=== PATIENT | female | born 1930 | race Two or more races ===

== ENCOUNTER 2016-08-05 09:19 | Emergency (ER) | payer OTHER, MEDICAID ==
[~2016-08-05] VITALS: Ht 160 cm; Wt 42.6 kg
[2016-08-05 10:07] LABS: Basophils # (auto) 0 uL; Basophils % (auto) 0.4 % (0.0-2.0); CONDITION Y; Eosinophils # (auto) 0.1 uL; Eosinophils % (auto) 0.9 % (0.0-7.0); Hematocrit 41.9 % (36.0-46.0); Hemoglobin 14.4 g/dL (12.2-16.2); Lymphocytes # (auto) 1.9 uL; Lymphocytes % (auto) 22.8 % (10.0-50.0); Mean Corpuscular Hemoglobin 32.6 pg (28.0-32.0); Mean Corpuscular Hgb Conc. 34.4 g/dL (32.0-36.0); Mean Corpuscular Volume 94.8 fL (80.0-100.0); Mean Platelet Volume 7.3 fL (7.4-10.4); Monocytes # (auto) 0.6 uL; Neutrophils # (auto) 5.6 uL; Neutrophils % (auto) 68.9 % (37.0-80.0); Platelet Count (auto) 289 10^3/uL (140-450); Red Cell Distribution Width 13.5 % (11.6-16.0); White Blood Cell 8.2 10^3/uL (4.4-10.8)
[2016-08-05 10:31] LABS: Alkaline Phosphatase 69 U/L (45-117); Anion Gap 11 (5-15); Aspartate Aminotransferase 22 U/L (15-37); BUN/Creatinine Ratio 19.8; Bilirubin, Total 0.6 mg/dL (0.2-1.0); Blood Urea Nitrogen 19 mg/dL (7-18); Calcium 9.3 mg/dL (8.5-10.1); Carbon Dioxide 24 mmol/L (21-32); Chloride 103 mmol/L (98-107); GFR African American 71 mL/min; GFR Non-African American 59 mL/min; Glucose 234 mg/dL (74-106); Potassium 4.1 mmol/L (3.5-5.1); Sodium 138 mmol/L (136-145); Total Protein 7.7 g/dL (6.4-8.2)
[2016-08-05] MEDS ORDERED: ONDANSETRON HCL 4 MG/2 ML VIAL ONE (12:29)
[2016-08-05] MEDS ORDERED: ONDANSETRON HCL 4 MG/2 ML VIAL IV ONE (12:45)
[2016-08-05] MEDS ORDERED: SODIUM CHLORIDE 0.9% 250 ML IV ONE (12:45)
[2016-08-05 17:02] VITALS: BP 137/71
== END 2016-08-05 17:09 | disposition home or self-care (01) ==
LOC: ER 09:19
DX: E11.65 Type 2 diabetes mellitus with hyperglycemia (principal); E86.0 Dehydration; R53.83 Other fatigue; N39.0 Urinary tract infection, site not specified; I10 Essential (primary) hypertension
CPT/HCPCS: 36415; 71020; 80053; 81002; 82962; 84484; 85025; 93005; 96361; 96374; 99285; J2405; J7030

== ENCOUNTER 2017-03-27 10:01 | Inpatient (IN) | payer MEDICAID, OTHER ==
[~2017-03-27] VITALS: Ht 167.6 cm; Wt 43.5 kg
[2017-03-27 10:47] LABS: Basophils # (auto) 0.1 uL; Basophils % (auto) 0.8 % (0.0-2.0); Eosinophils # (auto) 0 uL; Eosinophils % (auto) 0.3 % (0.0-7.0); Hematocrit 46.4 % (36.0-46.0); Hemoglobin 15.6 g/dL (12.2-16.2); Lymphocytes # (auto) 1.1 uL; Lymphocytes % (auto) 14.7 % (10.0-50.0); Mean Corpuscular Hemoglobin 32.8 pg (28.0-32.0); Mean Corpuscular Hgb Conc. 33.7 g/dL (32.0-36.0); Mean Corpuscular Volume 97.6 fL (80.0-100.0); Monocytes # (auto) 0.5 uL; Monocytes % (auto) 6.3 % (0.0-12.0); Neutrophils # (auto) 5.7 uL; Neutrophils % (auto) 77.9 % (37.0-80.0); Nucleated Red Blood Cells % 0.1 %; Platelet Count (auto) 292 10^3/uL (140-450); Red Blood Cells 4.76 10^6/uL (4.0-5.20); Red Cell Distribution Width 13.4 % (11.8-14.3); White Blood Cell 7.3 10^3/uL (4.4-10.8)
[2017-03-27 11:11] LABS: Urine Bacteria NONE SEEN /hpf (None Seen); Urine Blood 1+ /uL (Negative); Urine Specific Gravity 1.004 (1.001-1.035); Urine WBC 4 /hpf (0 - 5)
[2017-03-27 11:12] LABS: Alanine Aminotransferase 31 U/L (13-56); Albumin 4.5 g/dL (3.4-5.0); Alkaline Phosphatase 67 U/L (45-117); Anion Gap 9 (5-15); Aspartate Aminotransferase 31 U/L (15-37); BUN/Creatinine Ratio 18.2; Bilirubin, Total 0.7 mg/dL (0.2-1.0); Blood Urea Nitrogen 16 mg/dL (7-18); Calcium 10.3 mg/dL (8.5-10.1); Carbon Dioxide 28 mmol/L (21-32); Chloride 100 mmol/L (98-107); GFR African American 78 mL/min; GFR Non-African American 65 mL/min; Glucose 170 mg/dL (74-106); Sodium 137 mmol/L (136-145); Total Protein 8.7 g/dL (6.4-8.2)
[2017-03-27] MEDS ORDERED: cefTRIAXone 1GM/10ml IVPUSH 10 ML IV ONE (12:30)
[2017-03-27 12:54] LABS: INR 0.9 (0.9-1.15); Partial Thromboplastin Time 24.5 sec (22.64-33.71); Prothrombin Time 9.8 sec (9.37-12.3)
[2017-03-27] MEDS ORDERED: ASPirin 81 mg TAB ONE (14:39)
[2017-03-27] MEDS ORDERED: ASPirin 81 mg TAB PO ONE (14:45)
[2017-03-27] MEDS ORDERED: ASPirin-EC 81 mg tab PO ONE (16:00)
[2017-03-27] MEDS ORDERED: ACETAMINOPHEN 325 MG TAB PO PRN (16:15)
[2017-03-27] MEDS ORDERED: MORPHINE SULFATE 4 MG/ML SYR/VIAL IV PRN (16:15)
[2017-03-27] MEDS ORDERED: DOCUSATE SOD 100 MG CAP PO PRN (16:15)
[2017-03-27] MEDS ORDERED: TEMAZEPAM 15 MG CAP PO PRN (16:15)
[2017-03-27] MEDS ORDERED: ONDANSETRON HCL 4 MG/2 ML VIAL IV PRN (16:15)
[2017-03-27] MEDS ORDERED: HYDROcodone-ACET 5/325MG TAB PO PRN (16:15)
[2017-03-27] MEDS ORDERED: NITROGLYCERIN 0.4 MG SL TAB SL PRN (16:15)
[2017-03-27] MEDS ORDERED: DEXTROSE (50%) 50ML SYRG IV PRN (16:15)
[2017-03-27] MEDS: ACCU-CHEK COMFORT CURVE STRIP VI SCH ×2 (17:27→21:57)
[2017-03-27] MEDS: InsuLIN REG 1unit/0.01ml Soln (100units/ml) SC SCH ×2 (17:30→21:57)
[2017-03-27 20:00] VITALS: BP 144/75
[2017-03-27 20:10] VITALS: BP 144/75
[2017-03-27] MEDS: ATORVASTATIN 20 MG TAB PO SCH (21:52)
[2017-03-27] MEDS: FAMOTIDINE 20 MG TAB PO SCH (21:52)
[2017-03-27 22:00] VITALS: BP 144/75
[2017-03-27] MEDS: SODIUM CHLOR 0.9% PF (SALINE LOCK) 10ML VIAL IV SCH (22:03)
[2017-03-27] MEDS ORDERED: ATOR40TA52 PO (23:19)
[2017-03-27] MEDS ORDERED: GLIP-115 PO (23:19)
[2017-03-27] MEDS ORDERED: AMLO5TAB2 PO (23:19)
[2017-03-27] MEDS ORDERED: METF-370 PO (23:19)
[2017-03-27] MEDS ORDERED: DORZ2SOL22 EACHEYE (23:19)
[2017-03-27] MEDS ORDERED: LISI-646 PO (23:19)
[2017-03-27] MEDS ORDERED: LATA0.0015 EACHEYE (23:19)
[2017-03-28] VITALS (8 sets, daily range): BP systolic 100–150; BP diastolic 59–84
[2017-03-28 06:17] LABS: Basophils # (auto) 0 uL; Basophils % (auto) 0.7 % (0.0-2.0); Eosinophils # (auto) 0.1 uL; Eosinophils % (auto) 1.1 % (0.0-7.0); Hemoglobin 13.4 g/dL (12.2-16.2); Lymphocytes % (auto) 34.4 % (10.0-50.0); Mean Corpuscular Hemoglobin 32.7 pg (28.0-32.0); Mean Corpuscular Hgb Conc. 33.5 g/dL (32.0-36.0); Mean Corpuscular Volume 97.5 fL (80.0-100.0); Monocytes # (auto) 0.6 uL; Monocytes % (auto) 11.3 % (0.0-12.0); Neutrophils % (auto) 52.5 % (37.0-80.0); Nucleated Red Blood Cells % 0.1 %; Platelet Count (auto) 250 10^3/uL (140-450); Red Cell Distribution Width 13.5 % (11.8-14.3); White Blood Cell 5.7 10^3/uL (4.4-10.8)
[2017-03-28] MEDS: glipiZIDE 5 MG TAB PO SCH (06:35)
[2017-03-28] MEDS: SODIUM CHLOR 0.9% PF (SALINE LOCK) 10ML VIAL IV SCH ×3 (06:37→21:56)
[2017-03-28] MEDS: InsuLIN REG 1unit/0.01ml Soln (100units/ml) SC SCH ×4 (06:37→21:57)
[2017-03-28] MEDS: ACCU-CHEK COMFORT CURVE STRIP VI SCH ×4 (06:38→21:57)
[2017-03-28 06:39] LABS: Albumin 3.6 g/dL (3.4-5.0); BUN/Creatinine Ratio 33.3; Bilirubin, Total 0.6 mg/dL (0.2-1.0); Calcium 9.8 mg/dL (8.5-10.1)
[2017-03-28] MEDS: MULTIPLE VITAMIN TAB PO SCH (09:39)
[2017-03-28] MEDS: ENOXAPARIN SOD 40 MG/0.4 ML SYRINGE SC SCH (09:39)
[2017-03-28] MEDS: ASPirin-EC 81 mg tab PO SCH (09:40)
[2017-03-28] MEDS: LISINOPRIL 5 MG TAB PO SCH (09:40)
[2017-03-28] MEDS: FAMOTIDINE 20 MG TAB PO SCH ×2 (09:40→21:45)
[2017-03-28] MEDS: amLODIPine BESYLATE 5 MG TAB PO SCH (09:41)
[2017-03-28] MEDS ORDERED: IOHEXOL 350 MG/ML 100ML IJ ONE (17:54)
[2017-03-28] MEDS: SODIUM CHLORIDE 0.9% 1,000 ML IV SCH (18:49)
[2017-03-28] MEDS ORDERED: LATANOPROST 0.005 % OPTH(EYE) SOL 2.5ML EACHEYE SCH (20:00)
[2017-03-28] MEDS: ATORVASTATIN 20 MG TAB PO SCH (21:45)
[2017-03-28] MEDS: DORZOLAM-TIMOLOL(2/0.5%) OPTH(EYE) SOLN 10ML EACHEYE SCH (21:56)
[2017-03-29 05:15] VITALS: BP 148/87
[2017-03-29] MEDS: glipiZIDE 5 MG TAB PO SCH (06:41)
[2017-03-29] MEDS: SODIUM CHLOR 0.9% PF (SALINE LOCK) 10ML VIAL IV SCH ×2 (06:41→14:00)
[2017-03-29] MEDS: ACCU-CHEK COMFORT CURVE STRIP VI SCH ×3 (06:42→17:00)
[2017-03-29] MEDS: InsuLIN REG 1unit/0.01ml Soln (100units/ml) SC SCH ×3 (06:42→17:00)
[2017-03-29 08:00] VITALS: BP 157/78
[2017-03-29] MEDS: DORZOLAM-TIMOLOL(2/0.5%) OPTH(EYE) SOLN 10ML EACHEYE SCH (10:00)
[2017-03-29] MEDS: MULTIPLE VITAMIN TAB PO SCH (11:17)
[2017-03-29] MEDS: ENOXAPARIN SOD 40 MG/0.4 ML SYRINGE SC SCH (11:17)
[2017-03-29] MEDS: FAMOTIDINE 20 MG TAB PO SCH (11:17)
[2017-03-29] MEDS: LISINOPRIL 5 MG TAB PO SCH (11:18)
[2017-03-29] MEDS: amLODIPine BESYLATE 5 MG TAB PO SCH (11:18)
[2017-03-29] MEDS: ASPirin-EC 81 mg tab PO SCH (11:18)
[2017-03-29 13:00] VITALS: BP 153/76
[2017-03-29] MEDS: SODIUM CHLORIDE 0.9% 1,000 ML IV SCH (13:00)
[2017-03-29] MEDS ORDERED: ATOR20TA50 PO (16:13)
[2017-03-29] MEDS ORDERED: ASP81EC PO (16:13)
[2017-03-29 16:24] VITALS: BP 153/76
== END 2017-03-29 19:57 | disposition home or self-care (01) | DRG 65 ==
LOC: ER 10:01 → EDBD 10:01 → DOU IN ICU 10:02 → TELE-WESTW 18:42
PROVIDERS: ADMIT Internal Medicine; ATTEND Internal Medicine
DX: I63.9 Cerebral infarction, unspecified (principal); N39.0 Urinary tract infection, site not specified; B69.0 Cysticercosis of central nervous system; E11.21 Type 2 diabetes mellitus with diabetic nephropathy; I13.10 Hypertensive heart and chronic kidney disease without heart failure, with stage 1 through stage 4 chronic kidney disease, or unspecified chronic kidney disease; E11.22 Type 2 diabetes mellitus with diabetic chronic kidney disease; E78.5 Hyperlipidemia, unspecified; I65.23 Occlusion and stenosis of bilateral carotid arteries; N18.2 Chronic kidney disease, stage 2 (mild); Z82.49 Family history of ischemic heart disease and other diseases of the circulatory system; Z88.0 Allergy status to penicillin
CPT/HCPCS: 36415; 70450; 70496; 70498; 70551; 71046; 80053; 81001; 82962; 83036; 83735; 84443; 84484; 85025; 85610; 85730; 92610; 93005; 93306; 93886; 94761; 96374; J1815